=== PATIENT | female | born 1995 | race Caucasian/White ===

== ENCOUNTER → 2017-06-10 | Day surgery (SDC) | payer OTHER ==
[~2017-06-10] VITALS: Ht 165.1 cm; Wt 57.6 kg
[~2017-06-10] MED LIST: ACETAMINOPHEN 1000 MG/100 ML 100 ML IV ONE; APREPITANT 40 MG CAP ONE; CHLORHEXIDINE GLUCONATE 2 % 1 PACK (2 CLOTHS) TOPICAL PRN; DEXAMETHASONE SOD PHOS 4 MG/ML VIAL IV ONE; DO NOT ADM ANY ANTICOAGULANT DRUGS PRN; KETOROLAC TROMETHAMINE 30 MG/ML (IVP) VIAL IV PUSH ONE; KETOROLAC TROMETHAMINE 30 MG/ML (IVP) VIAL IV PUSH PRN; LACTATED RINGER'S 1000 ML IV PRN; LIDOCAINE 1%/EPINEPHrine 1:100,000 SOLN 30 ML VIAL ONE; LIDOCAINE HCL 1% PF 5 ML SYRINGE OTHER ONE; LISD30 PO; METOPROLOL TARTRATE 25 MG TAB PO PRN; MIDAZOLAM HCL 2 MG/2 ML VIAL ONE; ONDANSETRON HCL 4 MG/2 ML VIAL IV ONE; ONDANSETRON HCL 4 MG/2 ML VIAL IV PUSH PRN; POVIDONE IODINE 5% (ANTISEPSIS KIT) 4 APPLICATIONS EACH NARE PRN; PROPOFOL 200 MG/20 ML AMP IV ONE; SODIUM CHLORID 0.9% 500 ML IV PRN; SPRI28TA PO; oxyCODONE/ACETAMINOPHEN 5 MG/325 MG TAB PO PRN
--- NOTE | 2017-06-10 09:22 | MH ---
cc: Gilma Canales MD DATE OF ADMISSION: 06/10/2017 HISTORY OF PRESENT ILLNESS: The patient is a 22-year-old white female, G0, who came in for her first visit with us this past March and she is currently using control pills. She had a Pap smear done which revealed a low grade squamous lesion. She underwent a colposcopy which revealed lesions that were between 9 and 12 o'clock. She had mosaicism/punctation and a white epithelium. Her pathology came back with an ECC that was benign and a cervical biopsy that showed a high-grade lesion, KRISTAL 2-3. Because of these findings, I recommended she undergo a LEEP, cone biopsy. She understands that and desires to proceed. PAST MEDICAL HISTORY: Negative. PAST SURGICAL HISTORY: Tonsils. MEDICATIONS: control pills. ALLERGIES: PENICILLIN. SOCIAL HISTORY: No tobacco, occasional alcohol. No drug use. She is single and a student. FAMILY HISTORY: Hypertension. REVIEW OF SYSTEMS: No prior abnormal Paps. She has had the HPV vaccine and no STDs. OBSTETRIC HISTORY: G0. PHYSICAL EXAMINATION: VITAL SIGNS: Her weight is 127, blood pressure 100/60, height 5 feet 5 inches, pulse of 70. BREASTS: Are without masses, nodes or discharge. PULMONARY: Chest clear to auscultation bilaterally. CARDIAC: Regular rate and rhythm, without murmur, rub or gallop. ABDOMEN/BACK: Soft, nontender, nondistended. No hepatosplenomegaly. No CVA tenderness. No hernias. PELVIC: Cervix shows a lesion between 9 and 12 o'clock on the colpo. Uterus palpates normal size. No adnexal masses. 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 The plan will be for a LEEP, cone biopsy. MD JOSUÉ Gleason/BAO , 10:49 PM , 11:19 PM
[2017-06-10 11:10] VITALS: BP 113/68; PULSE 68; RESP 16; TEMP 98; O2SAT 99
--- NOTE | 2017-06-11 08:02 | MP ---
cc: Gilma Canales MD DATE OF OPERATION: 06/10/2017 DATE OF SURGERY: 06/10/2017 PREOPERATIVE DIAGNOSIS: KRISTAL 2-3 of the ectocervix. POSTOPERATIVE DIAGNOSIS: KRISTAL 2-3 of the ectocervix. PROCEDURE PERFORMED: LEEP cone biopsy. SURGEON: Gilma Canales MD ANESTHESIA: General by face mask. FINDINGS IN SURGERY: Included normal appearing nulliparous cervix. BLOOD LOSS: None. COMPLICATIONS: None. DESCRIPTION OF OPERATION: After proper consents were obtained, the patient was taken to the operating room where general by facemask anesthesia was applied. She was then placed in the dorsal lithotomy position, sterilely prepped and draped and an insulated bivalve speculum was placed. At this time, Lidocaine with epinephrine solution was placed circumferentially around the cervix. I then performed 1 ectocervical loop followed by endocervical curettage. I then used the roller ball cautery for hemostasis. Instruments were removed. Counts were correct, hemostasis was assured, and the patient was stable to the recovery room. Gilma Canales MD CCD/KD , 07:51 AM , 08:01 AM
== END | disposition home or self-care (01) ==
LOC: HSDC 06:44
PROVIDERS: ATTEND Obstetrics & Gynecology
DX: N87.1 Moderate cervical dysplasia (principal)
CPT/HCPCS: 00940; 57522; 84702; 88305; 88307; J0131; J1100; J1885; J2250; J2405; J7120; J8501